=== PATIENT | female | born 2000 | race African-American/Black ===

== ENCOUNTER 2022-07-04 09:39 | Outpatient (CLI) | payer OTHER | END 2022-07-04 19:15 | disposition home or self-care (01) | LOC: CT 09:39 | PROVIDERS: ATTEND Internal Medicine | DX: R19.09 Other intra-abdominal and pelvic swelling, mass and lump (principal); R10.9 Unspecified abdominal pain; R53.83 Other fatigue; Z79.01 Long term (current) use of anticoagulants; R59.1 Generalized enlarged lymph nodes; R59.0 Localized enlarged lymph nodes; R63.4 Abnormal weight loss | CPT/HCPCS: Q9963 ==